=== PATIENT | male | born 1995 | race Caucasian/White ===

== ENCOUNTER 2020-04-16 19:27 | Emergency (ER) | payer MEDICAID, SELFPAY ==
[2020-04-16 20:10] VITALS: BP 117/75; PULSE 102; RESP 19; TEMP 37.6; O2SAT 99; BMI 22.6
--- NOTE | 2020-04-16 20:38 | HMH.EDUTC ---
[facility] [place] Disposition Clinical Impression: Encounter for laboratory testing for COVID-19 virus Disposition: Home, Self-Care Condition on Discharge: Good Instructions: Nausea and Vomiting-Adult, Ondansetron, DI for COVID-19 (Suspected or Confirmed ), COVID-19: Testing and Tracing, Preventing the Spread of Coronavirus Discharge Instructions Additional Instructions: ? Avoid fruit juices, as these do not replace minerals and can actually increase diarrhea. ? Children and adults can use sports drinks to replenish electrolytes. Younger children and infants should use products formulated for children, like oral rehydration solutions. ? Eat food in small amounts and let your stomach recover. ? Get lots of rest. You may feel tired or weak. ? No greasy or fried foods for the next 24-48 hours BRAT diet Bananas Rice Apples and Cofield ? Make sure to drink plenty of liquids ? Return if needed ? Straight to ER if any life threatening symptoms ? Zofran as prescribed ? Follow up with family doctor in the next 48-72 hours if no improvement or any worsening of symptoms *Monitor Temp, Over the counter Motrin or Tylenol as directed/as needed Tylenol every 4 hours and Motrin every 6 hours (as long as your family doctor has told you that you can take it) for fever or pain. and straight to ER if unable to lower temp less than 101.0 after medication given Follow up IMMEDIATELY for new or worsening symptoms or no Noticeable improvement over the next 48-72 hours. 911 for difficulty breathing or swallowing You were tested for today for COVID19 your test result should be back in the next 24-48 hours, you may call to the [facility] to see if your test results are back in the next 48 hours [phone] [facility] hours are 9am-9pm You was given a handout with instructions for Self Quarantine and Self isolation for while you wait on test results and what to do if they are positive If you are positive the Health Dept will be contacting you also Prescriptions: Ondansetron [Zofran 4mg ODT] 4 mg PO TIDP PRN #10 tab PRN Reason: Vomiting Transmission Status: Received by [id number] Referrals: PCP,No [Primary Care Provider] - As needed Time of Disposition: 20:42 Medical Decision Making - Sandoval Inquiry Pt receiving controlled substance: No Sandoval was queried for this patient: No Vital Signs: 04/16/20 20:10 04/16/20 20:45 Temperature 99.6 F 99.6 F Temperature Source Oral Pulse Rate 102 H Pulse Rate [Right Brachial] 102 H Respiratory Rate 19 19 Blood Pressure 117/75 Blood Pressure [Right Arm] 117/75 Blood Pressure Mean [Right Arm] 89 Blood Pressure Source [Right Arm] Automatic Cuff Blood Pressure Position [Right Arm] Sitting 02 Sat by Pulse Oximetry 99 Oxygen Delivery Method Room Air Orders (Tests/Meds): ED MEDICATIONS Discontinued Medications Generic Name Dose Route Start Last Admin Trade Name Freq PRN Reason Stop Dose Admin Ondansetron HCl 4 mg 04/16/20 20:38 04/16/20 20:43 Ondansetron 4mg Odt SL 04/16/20 20:39 4 mg ONCE ONE Administration ORDERS Category Date Time Status Covid-19 Nasal PCR ([facility]) Routine Lab 04/16/20 19:32 Ordered [facility] HPI - General Stated complaint: covid test Time Seen by Provider: 04/16/20 20:38 Mode of Arrival: Ambulatory Source of Information: Patient Limitations: No Limitations Description of Symptoms (Recalled from Triage Doc. by RN): PATIENT REQUESTING COVID TEST D/T EXPOSURE; C/O VOMITING, CHILLS, AND BODY ACHES HEENT Symptoms (Recalled from RN notes): No Resp Symptoms (Recalled from RN notes): No Skin Symptoms (Recalled from RN notes): No MS Symptoms (Recalled from RN notes): No Functional Status (Recalled from RN notes): WNL - History of Present Illness Provider Complaint: Mother state that he has been exposed to someone that is positive for COVID States that today he has been having vomiting, fever, chills and body aches States that she was worried that he may have COVID so
[2020-04-16 20:45] VITALS: BP 117/75; PULSE 102; RESP 19; TEMP 37.6; O2SAT 99
== END 2020-04-16 20:57 | disposition home or self-care (01) ==
PROVIDERS: Emergency Provider Nurse Practitioner
DX: Z20.822 Contact with and (suspected) exposure to COVID-19 (principal); R50.9 Fever, unspecified; R11.10 Vomiting, unspecified
CPT/HCPCS: 99202; G0463; U0003

== ENCOUNTER 2020-08-21 10:32 | Emergency (ER) | payer MEDICAID, SELFPAY ==
[2020-08-21 11:02] VITALS: BP 120/84; PULSE 103; RESP 19; TEMP 37.5; O2SAT 95; BMI 20.8
[2020-08-21 11:15] VITALS: BP 120/84; PULSE 103; RESP 19; TEMP 37.5; O2SAT 95
--- NOTE | 2020-08-21 12:10 | HMH.EDUTC ---
[facility] [place] Disposition Clinical Impression: Viral syndrome, Exposure to COVID-19 virus Disposition: Home, Self-Care Condition on Discharge: Good Instructions: DI for Viral Syndrome, Preventing the Spread of Coronavirus Discharge Instructions Additional Instructions: Drink plenty of fluids. Take tylenol or ibuprofen for pain or fever. Take the medications as directed. Follow up with your regular doctor. GO TO THE ER FOR ANY WORSENING SYMPTOMS Prescriptions: Ondansetron [Zofran 4mg ODT] 4 mg PO Q8HP PRN #12 tab.rapdis PRN Reason: Nausea Transmission Status: Received by [facility] Azithromycin [Z-Mykel 250mg Tab*] 250 mg PO UD DOSE PK #6 tab Transmission Status: Received by [facility] Referrals: Provider,Referral, [Primary Care Provider] - Time of Disposition: 12:12 Medical Decision Making - Medical Records Medical records reviewed: No: I reviewed the patient's medical records. - Sandoval Inquiry Pt receiving controlled substance: No Vital Signs: 08/21/20 11:02 08/21/20 11:15 Temperature 99.5 F 99.5 F Temperature Source Oral Pulse Rate 103 H Pulse Rate [Left] 103 H Respiratory Rate 19 19 Blood Pressure 120/84 Blood Pressure [Right Arm] 120/84 Blood Pressure Mean [Right Arm] 96 02 Sat by Pulse Oximetry 95 - Lab Data Lab Results 08/21/20 12:12: Strep Scn Rapid [facility] Negative Orders (Tests/Meds): ORDERS Category Date Time Status Strep Screen Confirmation Stat Micro 08/21/20 12:12 Received [facility] [place] HPI - General Stated complaint: covid test Time Seen by Provider: 08/21/20 12:10 Source of Information: Patient Limitations: No Limitations Description of Symptoms (Recalled from Triage Doc. by RN): Covid test- Symptomatic vomiting and fever x 1 day HEENT Symptoms (Recalled from RN notes): No Resp Symptoms (Recalled from RN notes): No Skin Symptoms (Recalled from RN notes): No MS Symptoms (Recalled from RN notes): No Functional Status (Recalled from RN notes): wnl - History of Present Illness Provider Complaint: He states that he has felt bad since yesterday. He has had n/v/d. He has also had chilling and body aches. - Related Data Previous Rx's Medication Instructions Recorded Ondansetron [Zofran 4mg ODT] 4 mg PO TIDP PRN #10 tab 04/16/20 Azithromycin [Z-Mykel 250mg Tab*] 250 mg PO UD DOSE PK #6 tab 08/21/20 Ondansetron [Zofran 4mg ODT] 4 mg PO Q8HP PRN #12 tab.rapdis 08/21/20 Allergies Allergy/AdvReac Type Severity Reaction Status Date / Time No Known Allergies Allergy Verified 08/21/20 11:04 - Worker's Comp Is this a Worker's Comp case?: No [facility] History - Hepatitis A Screen Drug use history?: No High risk sexual behaviors?: No History of sexually transmitted infection?: No Currently employed?: No Childcare worker?: No Do you have indoor plumbing?: Yes Do you have electricity?: Yes Attestation statement:: This patient has been screened for Hepatitis A risk factors. I have reviewed the patient's past medical history: Yes - Social History Smoking Status: Never smoker Alcohol Intake: never Occupational Status: other ROS Obtained: Yes All systems reviewed & no additional complaints - Constitutional Constitutional: Reports system reviewed and no additional complaints, except as docu - Eyes Eyes: Reports system reviewed and no additional complaints, except as docu - ENT Ears, Nose, Mouth, and Throat: Reports system reviewed and no additional complaints, except as docu - Cardiovascular Cardiovascular: Reports system reviewed and no additional complaints, except as docu - Respiratory Respiratory: Reports system reviewed and no additional complaints, except as docu - Gastrointestinal Gastrointestingal: Reports: system reviewed and no additional complaints, except as docu Physical Exam - General General appearance: alert, in no apparent distress - Head Head exam: atraumatic, normocephalic,
[2020-08-21 13:07] LABS: UTC Strep Screen (Rapid) Negative (Negative)
--- NOTE | 2020-08-21 15:05 | PC.NURSE ---
Pt notified by phoneat [phone] 08/21/2020 of Positive Covid result and informed to self isolate and the Health Department would be following up with him.
== END 2020-08-21 12:20 | disposition home or self-care (01) ==
PROVIDERS: Emergency Provider Nurse Practitioner Family
DX: U07.1 COVID-19 (principal); R50.9 Fever, unspecified
CPT/HCPCS: 87880; 99202; G0463; U0003

== ENCOUNTER 2020-12-11 18:15 | Emergency (ER) | payer MEDICAID, SELFPAY ==
--- NOTE | 2020-12-11 18:45 | HMH.EDUTC ---
[facility] Disposition Clinical Impression: Exposure to COVID-19 virus Disposition: Home, Self-Care Condition on Discharge: Good Instructions: DI for COVID-19 (Suspected or Confirmed ), Preventing the Spread of Coronavirus Discharge Instructions Additional Instructions: Drink plenty of fluids. Take tylenol for pain or fever. Return if you begin to have difficulty breathing. Follow up with your regular doctor. GO TO THE ER FOR ANY WORSENING SYMPTOMS Quarantine until you know the results of your covid-19 test. If it is positive, the health department should call you and give you further instructions about your length of Quarantine and other things. Notify your school or workplace of your results and follow their instructions regarding return to work/school. Referrals: Lukas Vail [Primary Care Provider] - Forms: Work/School Release Time of Disposition: 19:10 Medical Decision Making - Medical Records Medical records reviewed: No: I reviewed the patient's medical records. - Sandoval Inquiry Pt receiving controlled substance: No Vital Signs: 12/11/20 18:53 12/11/20 18:58 Temperature 98.4 F 98.4 F Temperature Source Oral Pulse Rate 80 Pulse Rate [Left] 80 Respiratory Rate 17 17 Blood Pressure 112/63 Blood Pressure [Right Arm] 112/63 Blood Pressure Mean [Right Arm] 79 02 Sat by Pulse Oximetry 99 [facility] HPI - General Stated complaint: COVID TEST Time Seen by Provider: 12/11/20 18:45 - History of Present Illness Provider Complaint: His father was diagnosed with Covid-19 today. This patient denies any symptoms so far, but he has been around his dad a lot over the past several days. He has not been vaccinated. He denies any history of asthma or other lung issues. - Related Data Previous Rx's Medication Instructions Recorded Ondansetron [Zofran 4mg ODT] 4 mg PO TIDP PRN #10 tab 04/16/20 Azithromycin [Z-Mykel 250mg Tab*] 250 mg PO UD DOSE PK #6 tab 08/21/20 Ondansetron [Zofran 4mg ODT] 4 mg PO Q8HP PRN #12 tab.rapdis 08/21/20 Allergies Allergy/AdvReac Type Severity Reaction Status Date / Time No Known Allergies Allergy Verified 08/21/20 11:04 [facility] History - Hepatitis A Screen Attestation statement:: This patient has been screened for Hepatitis A risk factors. I have reviewed the patient's past medical history: Yes - Social History Smoking Status: Never smoker Alcohol Intake: never Occupational Status: other ROS Obtained: Yes All systems reviewed & no additional complaints - Constitutional Constitutional: Denies body ache, Denies chills, Denies fever(s), Denies poor appetite, Denies malaise - Eyes Eyes: Denies eye discharge - ENT Ears, Nose, Mouth, and Throat: Denies dizziness, Denies otalgia, Denies sore throat - Cardiovascular Cardiovascular: Denies chest pain - Respiratory Respiratory: Denies chest congestion, Denies cough, Denies dyspnea, Denies stridor, Denies wheezing - Gastrointestinal Gastrointestingal: Denies: abdominal pain, diarrhea, nausea, vomiting Physical Exam - General General appearance: alert, in no apparent distress - Head Head exam: atraumatic, normocephalic, normal inspection - Eye Eye exam: Present: normal appearance, PERRL, EOMI - ENT ENT exam: Present: normal exam, normal oropharynx, mucous membranes moist, TM's normal bilaterally, normal external ear exam - Neck Neck exam: Present: normal inspection, full ROM, trachea midline. Absent: meningismus, lymphadenopathy - Chest Chest inspection: Present: normal inspection, symmetric chest wall rise. Absent: tenderness - Respiratory Respiratory exam: Present: normal lung sounds bilaterally. Absent: respiratory distress - Cardiovascular Cardiovascular exam: Present: regular rate, normal rhythm. Absent: JVD - Abdominal Exam Abdominal exam: Present: soft, normal bowel sounds. Absent: distention, tenderness, guarding - Extremities Exam Extremities ex
[2020-12-11 18:53] VITALS: BP 112/63; PULSE 80; RESP 17; TEMP 36.9; O2SAT 99; BMI 21.7
[2020-12-11 18:58] VITALS: BP 112/63; PULSE 80; RESP 17; TEMP 36.9
== END 2020-12-11 19:32 | disposition home or self-care (01) ==
PROVIDERS: Emergency Provider Nurse Practitioner Family; PCP Family Medicine
DX: Z20.822 Contact with and (suspected) exposure to COVID-19 (principal)
CPT/HCPCS: 99202; G0463; U0003

== ENCOUNTER 2021-10-13 11:39 | Emergency (ER) | payer MEDICAID, SELFPAY ==
[2021-10-13 12:00] VITALS: BP 126/70; PULSE 91; RESP 22; TEMP 37.3; O2SAT 97; BMI 22.1
--- NOTE | 2021-10-13 12:11 | HMH.EDUTC ---
[facility] [place] Impression: Viral syndrome Disposition: Home, Self-Care Condition on Discharge: Good Instructions: DI for Fever (Symptom) -- Adult, DI for Headache, Nausea and Vomiting-Adult Additional Instructions: *Monitor Temp, Over the counter Motrin or Tylenol as directed/as needed Tylenol every 4 hours and Motrin every 6 hours (as long as your family doctor has told you that you can take it) for fever or pain. and straight to ER if unable to lower temp less than 101.0 after medication given *Warm salt water gargles may help to soothe the throat *Throat Lozenges *Warm fluids like tea with honey may help to soothe the throat *Sleep elevated *Humidifier/Vaporizer Follow up IMMEDIATELY for new or worsening symptoms or no Noticeable improvement over the next 48-72 hours. 911 for difficulty breathing or swallowing You were tested for today for COVID19 your test result should be back in the next 24-48 hours, you may check your results on the [facility] My Health Portal Make sure to take your Vitamins Vit. C Vit D and Zinc if you can take them Prescriptions: Ondansetron [Zofran 4mg ODT] 4 mg PO TIDP PRN #12 tab PRN Reason: Vomiting Transmission Status: Received by [id number] Referrals: Provider,Referral, MD [Primary Care Provider] - As needed Forms: Work/School Release Time of Disposition: 12:41 Medical Decision Making - Sandoval Inquiry Pt receiving controlled substance: No Sandoval was queried for this patient: No Vital Signs: 10/13/21 12:00 Temperature 99.1 F Temperature Source Oral Pulse Rate [Left Brachial] 91 H Respiratory Rate 22 Blood Pressure [Left Arm] 126/70 Blood Pressure Mean [Left Arm] 88 Blood Pressure Source [Left Arm] Automatic Cuff Blood Pressure Position [Left Arm] Sitting 02 Sat by Pulse Oximetry 97 Oxygen Delivery Method Room Air Orders (Tests/Meds): ED MEDICATIONS Discontinued Medications Generic Name Dose Route Start Last Admin Trade Name Freq PRN Reason Stop Dose Admin Ibuprofen 600 mg 10/13/21 12:12 10/13/21 12:19 Ibuprofen 600 Mg Tablet PO 10/13/21 12:13 600 mg ONCE ONE Administration Ondansetron HCl 4 mg 10/13/21 12:12 10/13/21 12:19 Ondansetron 4mg Odt SL 10/13/21 12:13 4 mg ONCE ONE Administration ORDERS Category Date Time Status Full Resp Panel w/COVID ([facility]) Routine Lab 10/13/21 11:50 Received Medical Decision Narrative: Patient states that headache is now gone and nausea is much improved since medication patient sitting up on exam table drinking water [facility] [place] - General Stated complaint: covid test Time Seen by Provider: 10/13/21 12:11 Mode of Arrival: Ambulatory Source of Information: Patient Limitations: No Limitations Description of Symptoms (Recalled from Triage Doc. by RN): PATIENT C/O VOMITING, FEVER, HEADACHE, AND SORENESS SINCE LAST NIGHT HEENT Symptoms (Recalled from RN notes): Yes Resp Symptoms (Recalled from RN notes): No Skin Symptoms (Recalled from RN notes): No MS Symptoms (Recalled from RN notes): No Functional Status (Recalled from RN notes): WNL - History of Present Illness Provider Complaint: Patient states that he started feeling bad yesterday States that he has been having fever, chills, headache, body aches, and N/V States that not sure if he may have been around someone with COVID but wanted to get tested - Related Data Previous Rx's Medication Instructions Recorded Ondansetron [Zofran 4mg ODT] 4 mg PO TIDP PRN #12 tab 10/13/21 Allergies Allergy/AdvReac Type Severity Reaction Status Date / Time No Known Allergies Allergy Verified 08/21/20 11:04 - Worker's Comp Is this a Worker's Comp case?: No [facility] History - Hepatitis A Screen Attestation statement:: This patient has been screened for Hepatitis A risk factors. I have reviewed the patient's past medical history: Yes - Social History Smoking Status: Never smoker Alcohol Intake: never Occupat
[2021-10-13 12:16] LABS: Adenovirus,PCR Not Detected (NotDetected); Bordetella Pertussis Not Detected (NotDetected); Chlamydophila Pneumoniae, PCR Not Detected (NotDetected); Coronavirus 229E Not Detected (NotDetected); Coronavirus NL63 Not Detected (NotDetected); Coronavirus OC43 Not Detected (NotDetected); Coronovirus HKU1,PCR Not Detected (NotDetected); Human Metapneumovirus Not Detected (NotDetected); Influenza A, PCR Not Detected (NotDetected); Influenza AH1, 2009 Not Detected (NotDetected); Influenza AH1, PCR Not Detected (NotDetected); Influenza AH3,PCR Not Detected (NotDetected); Influenza B, PCR Not Detected (NotDetected); Mycoplasma Pneumoniae, PCR Not Detected (NotDetected); Parainfluenza 1, PCR Not Detected (NotDetected); Parainfluenza 2, PCR Not Detected (NotDetected); Parainfluenza 3, PCR Not Detected (NotDetected); Parainfluenza 4, PCR Not Detected (NotDetected); Respiratory Syncytial Virus Not Detected (NotDetected); Rhinovirus/Enterovirus Not Detected (NotDetected)
[2021-10-13 12:39] VITALS: BP 126/70; PULSE 91; RESP 22; TEMP 37.3; O2SAT 97
[2021-10-13 13:35] LABS: Coronavirus 19, PCR Detected (NotDetected)
== END 2021-10-13 12:53 | disposition home or self-care (01) ==
PROVIDERS: Emergency Provider Nurse Practitioner
DX: U07.1 COVID-19 (principal); R50.9 Fever, unspecified; R11.10 Vomiting, unspecified; R51.9 Headache, unspecified
CPT/HCPCS: 87581; 87632; 87798; 99212; C9803; G0463; U0003; U0005